=== PATIENT | female | born 1955 | race Caucasian/White ===

== ENCOUNTER → 2016-11-03 | Outpatient (CLI) | payer MEDICARE, OTHER ==
[~2016-11-03] MED LIST: AMLODIPINE BESY10 MG PO; ATENOLOL50 MG; AUGMENTIN875 MG PO; KEFLEX500 MG PO; LORTAB 5-325 M1 EACH PO; TRAMADOL HCL50 MG PO; ULTRAM50 MG PO; ZESTORETIC 20-1 EAC1 PO
== END | disposition home or self-care (01) ==
LOC: CDC 11:15
DX: R10.9 Unspecified abdominal pain (principal); R94.31 Abnormal electrocardiogram [ECG] [EKG]
CPT/HCPCS: 93000

== ENCOUNTER 2016-11-22 09:54 | Day surgery (SDC) | payer OTHER ==
[~2016-11-22] VITALS: Ht 157.5 cm; Wt 70.2 kg
[~2016-11-22 09:54] MED LIST changes: +ADIPEX-P37.5 MG PO; +OMEPRAZOLE40 M1 PO; +OXAYDO5 MG PO; +TENORMIN50 MG PO
[2016-11-22 10:30] VITALS: BP 155/79
[2016-11-22 17:44] VITALS: BP 132/71
[2016-11-22 19:35] VITALS: BP 128/63
[2016-11-22 23:35] VITALS: BP 126/70
[2016-11-23 03:45] VITALS: BP 124/67
[2016-11-23 08:29] VITALS: BP 117/57
[2016-11-23 11:34] VITALS: BP 118/67
== END 2016-11-23 12:18 | disposition home or self-care (01) ==
LOC: SDC 09:54 → 2EAST 14:59 → 2SOUTH 14:59 → ENRESERV 15:00 → 2EAST 17:30
DX: K43.2 Incisional hernia without obstruction or gangrene (principal); K66.0 Peritoneal adhesions (postprocedural) (postinfection); Z90.710 Acquired absence of both cervix and uterus; Z90.49 Acquired absence of other specified parts of digestive tract; Z90.5 Acquired absence of kidney; I10 Essential (primary) hypertension; G35 Multiple sclerosis; G89.29 Other chronic pain; Z82.49 Family history of ischemic heart disease and other diseases of the circulatory system; Z83.3 Family history of diabetes mellitus
CPT/HCPCS: C1781; G0378; J0690; J1100; J1170; J2250; J2405; J2710; J2765; J3010; J7120